=== PATIENT | female | born 1950 | race Caucasian/White ===

== ENCOUNTER 2019-06-23 15:08 | Inpatient (IN) | payer OTHER, SELFPAY ==
[2019-06-23 15:26] VITALS: BP 106/64; PULSE 69; RESP 16; TEMP 36.2; O2SAT 98
--- NOTE | 2019-06-23 15:33 | DI.RAD_ITS ---
EXAM: XR KNEE LT 4V AP,LAT,RYAN,PAT CLINICAL HISTORY: patella pain and deformity TECHNIQUE: COMPARISON: No exams were available for comparison FINDINGS: Four views were obtained. There is a comminuted moderately displaced patellar fracture. There defor mity of the lateral tibial plateau which appears to be old. No additional acute fracture seen. IMPRESSION:
--- NOTE | 2019-06-23 15:34 | ED.GENADUL_ITS ---
Discharge Plan Disposition Patient Disposition: [facility] INPATIENT Condition: Stable Discharge Details Chief Complaint: Orthopedic Clinical Impression: Closed fracture of left patella Primary Care Provider: None,None ED Provider: Ciro Cisneros Home Meds and New Rx's Prescriptions: No Action No Known Home Meds RF: 0 Medical Decision Making 69-year-old female states she was carrying some bags at home when they got tangled in her legs and she tumbled down stairs. She denies a loss of consciousness and denies head/neck/chest/back/abdomen pain. She noticed immediately left anterior knee pain, swelling, bony crepitus. Exam does reveal deformity of the left patella. Concern also for quadriceps rupture as she is unable to extend the leg. Referred for x-ray which reveals joint effusion and left patellar fracture. I discussed the case with Dr. Hernández, including difficulty ascertaining full quadriceps/patellar tendon function. We have agreed the patient benefit from overnight admission and operative repair in the morning. Dr. Hernández discussed admission to the medicine service; discussed with Dr. Monroe. Patient to be admitted. ECG Data Attestation: I personally reviewed and interpreted this ECG (s) as follows: Interpretation: Sinus rhythm, rate 58, the QRS is narrow, there is no ST segment elevation. Nonspecific T wave changes in aVL and V2. HPI General Mode of arrival: wheelchair . Date/Time Provider Initiated Documentation: 06/23/19 15:21 . Limitations to Documentation: no limitations . Information obtained by: patient and family . History of Present Illness 69 year old F presents to the emergency department with the chief complaint of Left knee pain after fall downstairs, denies loss of consciousness., described as moderate, Quality is described as dull and constant, and is localized to the left and lower extremity. Patient reports no radiation. Patient started experiencing this minute(s) and it has been constant. Rest improves symptom(s), Movement worsens symptoms . Patient notes denies chest pain, headaches and syncope. Patient did receive the following treatments prior to arrival, cold therapy Related Data Home Medications Medication Instructions Recorded Confirmed Unknown [No Known Home Meds] 06/23/19 06/23/19 Allergies Allergy/AdvReac Type Severity Reaction Status Date / Time No Known Allergies Allergy Unverified 06/23/19 15:30 General Stated Complaint: Orthopedic ALDA: 3 Review of Systems Narrative: Denies loss of consciousness. No head/back/neck/chest/abdomen pain or injury. No numbness or tingling. Reports previous left tibial plateau repair with bone graft. 6 systems reviewed and otherwise negative [facility] Social History Smoking/Tobacco Use Status: Never Alcohol Intake: current Alcohol Intake frequency: holidays/special occasions only Substance use type: does not use Do you feel safe at home: Yes Do you feel safe in your relationship?: Yes Exam Narrative Exam Narrative: GEN: awake, alert, oriented 3. Pleasant, well groomed, interactive. HEAD: Normocephalic, atraumatic ENT: Mucous membranes moist, oropharynx unremarkable, External ear exam unremarkable EYES: PERRL, EOMI NECK: Full ROM, no SUZANNE, no menigismus CHEST/RESP: Nontender, clear to auscultation bilateral, no wheeze/rhonchi/rales CARDIOVASCULAR: RRR, no murmur, rub meli. 2+ Rad pulse bilateral ABDOMEN: Soft, nontender, no mass. +Bowel sounds EXT: Left leg with patellar swelling, tenderness, palpable bony deformity. Patient is unable to hold the left leg in extension and unable to elevate the heel off the bed. She holds the leg at 30 degrees. Pain with passive movement. Sensation intact throughout Neuro: Grossly normal neurologic exam, conversant, interactive. Psych: Speech fluent, thoughts congruent, affect normal Course Vital Signs Vital signs: Vital Signs Temperature 36.2 C L 06/23/19 15:26 Pulse 69 06/23/19 15:26 Respiratory Rate 16 06/23/19 15:26 Blood Pressure 106/64 06/23/19 15:26 Pulse Oximetry 98 06/23/19 15:26 Temperature 36.2 C L 06/23/19 15:26 Temperature Source Skin 06/23/19 15:26 Pulse 69 06/23/19 15:26 Respiratory Rate 16 06/23/19 15:26 Respiratory Effort Non-Labored 06/23/19 15:28 Blood Pressure 106/64 06/23/19 15:26 Blood Pressure Position Supine 06/23/19 15:26 Pulse Oximetry 98 06/23/19 15:26 Oxygen Delivery Method Room Air 06/23/19 15:26 Oxygen Flow Rate 0 06/23/19 15:26 Pain Level 6 06/23/19 15:26
[2019-06-23] MEDS: Acetaminophen 500 MG TAB (15:35)
--- NOTE | 2019-06-23 16:12 | DI.VRAD_ITS ---
PROCEDURE INFORMATION: Exam: XR Left Knee Exam date and time: 06/23/2019 4:01 PM Clinical history: 69 years old, female; Other: Patella pain and deformity TECHNIQUE: Imaging protocol: XR Left knee. Views: 4 or more views. COMPARISON: No relevant prior studies available. FINDINGS: Bones/joints: Patella fracture. Mild diastases. Knee joint effusion with fat fluid level. Soft tissues: Normal. IMPRESSION: Patella fracture. Mild diastases. Knee joint effusion with fat fluid level. Dictated and Authenticated by: Padmini Lee MD. Ordering:BRENDON Tanner MD
[2019-06-23 16:55] VITALS: BP 106/64; PULSE 69; RESP 16; TEMP 36.2; O2SAT 98
--- NOTE | 2019-06-23 17:22 | OCONE_ITS ---
Date of service: 06/23/19 Time of Service: 17:22 History of Present Illness Narrative: Chief Complaint: Left knee pain HPI: 69-year-old female status post fall downstairs today with sudden onset left knee pain. History of left knee arthritic symptoms for the past 10 years. Stop skiing because of knee prior symptoms. Still rides horses. Prior history of left tibial plateau ORIF and subsequent hardware removal for unclear reasons. Typically very active person. SANE: 26 prior injury: As above attempted treatments: None yet numbness/tingling: Denies prior imaging: X-rays in emergency room now PMH: Negative for any heart, lung, kidney disease. diabetes: Denies allergies: NKDA FH: non-contributory SH: hand dominance: LEFT occupation: Retired. Used to be an international business person. smoke cigarettes: No Consult Reason Left displaced patella fracture Assessment and Plan Assessment and plan (1) Fracture of patella, left, closed: Status: Acute Assessment and plan: 69-year-old female with left displaced comminuted stellate patella fracture Admit to orthopedic service for surgical fixation tomorrow Pain control Multimodal as ordered Hold DVT chemoprophylaxis pending OR tomorrow. CHIN stockings and SCDs to right lower extremity. Nonweightbearing left lower extremity. Velcro long-leg knee brace in place. May loosen or remove brace while patient is in hospital bed. Elevate left lower extremity in 1-2 pillows as comfort allows for swelling. Preoperative antibiotics ordered on-call to the OR for tomorrow CBC, BMP, PT/INR preoperatively as well as EKG. No medical contraindications to surgery Decision for left patella ORIF tomorrow afternoon and discharge in the evening per patient preference as long as she is comfortable and recovered from a nesthesia appropriately The risks, benefits, and alternatives were thoroughly discussed. Patient was counseled regarding pain management, expected postoperative course, and recovery timeline. All questions were answered. Informed consent was obtained. Patient and agree and understand treatment plan. Qualifiers: Encounter type: initial encounter Fracture alignment: displaced Fracture morphology: comminuted Qualified Code(s): S82.042A - Displaced comminuted fracture of left patella, initial encounter for closed fracture Review of Systems Constitutional Constitutional: Denies chills and Denies fever(s) Eyes Eyes: Denies diplopia and Denies loss of vision ENT Ears, Nose, Mouth, and Throat: Denies dental pain and Denies other (cavities) Cardiovascular Cardiovascular: Denies chest pain with activity, Denies irregular heart rhythm and Denies dyspnea Respiratory Respiratory: Denies cough and Denies dyspnea Gastrointestinal Gastrointestinal: Denies nausea and Denies vomiting Musculoskeletal Musculoskeletal: Reports as per HPI Integumentary/Breasts Skin/Breast: Denies rash and Denies wounds Neurologic Neurologic: Reports as per HPI and Denies loss of vision Psychiatric Psychiatric: Denies anxiety and Denies depression Hematologic/Lymphatic Hematologic/Lymphatic: Denies easy bleeding and Denies easy bruising Allergic/Immunologic Allergic/Immunologic: Reports as per HPI [facility] Social History Smoking/Tobacco Use Status: Never Alcohol Intake: current Alcohol Intake frequency: holidays/special occasions only Substance use type: does not use Do you feel safe at home: Yes Do you feel safe in your relationship?: Yes Exam Const General: cooperative, comfortable and no acute distress Orientation: alert, awake and not confused Limitations: mental status not altered and no language barrier HENMT Head: normocephalic and atraumatic Neck Neck: normal visual inspection and full ROM Resp Effort & Inspection: normal respiratory effort, able to speak in complete sentences, no audible wheezes and no grunting Cardio Other: 2+ dorsalis pedis pulse. Regular rate and rhythm. No pedal edema. General: deferred Skin Trauma: lacerations and/or abrasions noted Other: Minor abrasion to the outside of the right ankle. Minor abrasion to the right hand. Minor abrasion over the anterior left patella. Neuro General: alert, awake and oriented x3 Cognition: normal cognition Speech: speech normal Extrem Other: Left knee: Significant edema. Moderate tenderness to palpation about the patella. No ecchymosis yet. All thigh and leg compartments soft. Knee comfortably resting in approximately 20 degrees of flexion. Distally neurovascular intact. 5 out of 5 strength tibialis anterior, gastrocsoleus, EHL, FHL. Sensation intact to light touch superficial peroneal, deep peroneal, tibial nerves. Psych Appearance: grossly normal Mental Status: mental status grossly normal Speech and Movement: speech and movement normal Affect: normal affect Attitude: cooperative Results Last Vital Signs Temp 97.2 F L 06/23/19 16:55 Pulse 69 06/23/19 16:55 Resp 16 06/23/19 16:55 BP 106/64 06/23/19 16:55 Pulse Ox 98 06/23/19 16:55 Labs Result diagrams: 06/23/19 17:20 06/23/19 17:20 Labs: Laboratory Results - last 24 hr 06/23/19 16:25 Total Bilirubin Cancelled Conjugated Bilirubin Cancelled AST Cancelled ALT Cancelled Alkaline Phosphatase Cancelled Creatine Kinase Cancelled Total Protein Cancelled Albumin Cancelled Imaging Imaging Studies: Left knee x-rays: Significantly displaced, comminuted proximal pole stellate patella fracture in the setting of significant patellofemoral arthrosis with joint space narrowing and marginal osteophyte formation and generalized decreased bone mineral density. Significant tricompartmental arthrosis most severe laterally and patellofemoral compartments. No obvious signs of prior hardware placement or removal.
[2019-06-23 17:30] LABS: Abs Immature Grans 0.01 k/cumm (0.0-0.09); Absolute Basophil Count 0.02 k/cumm (0.0-0.2); Absolute Eosinophil Count 0.03 k/cumm (0.0-0.7); Absolute Lymphocyte Count 0.61 k/cumm (1.2-3.4); Absolute Monocyte Count 0.39 k/cumm (0.11-0.7); Absolute Neutrophil Count 5.13 k/cumm (1.2-6.7); Basophils % 0.3; Eosinophils % 0.5; HCT 37.4 % (36.0-46.0); HGB 12.7 g/dL (12.0-15.5); Immature Grans % 0.2; Lymphocytes % 9.9; Mean Corpuscular Hemoglobin 30.4 pg (27.0-33.0); Mean Corpuscular Volume 89.5 fL (80-95); Mean Platelet Volume 9.5 fL (8.0-11.0); Monocytes % 6.3; Neutrophils % 82.8; Platelet Count 199 x1000/uL (130-400); RBC 4.18 m/cumm (4.00-5.20); RBC Distribution Width 12.2 % (11.7-14.6); White Blood Cell Count 6.19 k/cumm (4.4-10.8)
[2019-06-23 17:43] LABS: Anion Gap 7.1 mmol/L (3-11); BUN 29 mg/dL (7-18); CO2 27.9 mmol/L (21.0-32.0); CREATININE 0.85 mg/dL (0.55-1.02); Calcium 8.6 mg/dL (8.5-10.1); Chloride 105 mmol/L (98-107); Glucose 101 mg/dL (70-100); Magnesium 2.2 mg/dL (1.8-2.4); Potassium 3.6 mmol/L (3.5-5.1); Sodium 140 mmol/L (136-145)
[2019-06-23 17:44] VITALS: BP 110/70; PULSE 66; RESP 14; TEMP 36.7; O2SAT 99
[2019-06-23] MEDS: Normal Saline 1,000 ML 60 ML IV (18:08)
[2019-06-23 19:25] VITALS: BP 104/63; PULSE 73; RESP 18; TEMP 36.7; O2SAT 95
[2019-06-23] MEDS: Acetaminophen 325 MG TAB PO (21:27)
[2019-06-23 23:55] VITALS: BP 110/67; PULSE 72; RESP 17; TEMP 37.2; O2SAT 97
[2019-06-24] VITALS (7 sets, daily range): BP systolic 112–129; BP diastolic 64–73; PULSE 46–69; RESP 12–25; TEMP 36.2–37.4; O2SAT 96–100
[2019-06-24] MEDS: Melatonin 3 MG TAB 9 MG PO (00:46)
[2019-06-24] MEDS: Normal Saline 1,000 ML 60 ML IV (09:25)
[2019-06-24] MEDS: Acetaminophen 325 MG TAB PO (09:31)
--- NOTE | 2019-06-24 13:20 | DI.RAD_ITS ---
EXAM: XR KNEE LT 1V CLINICAL HISTORY: LEFT DISPLACED PATELLA FRACTURE TECHNIQUE: C-arm fluoroscopy was provided in the OR. FINDINGS: No images were obtained. The fluoro time is 21.8 seconds. The radiation dose is 0.96 mGy. IMPRESSION:
--- NOTE | 2019-06-24 13:44 | ROE_ITS ---
Date of service: 06/24/19 Time of Service: 16:39 Operative Note Operative Note DATE OF PROCEDURE: 06/24/19 PRE-OP DIAGNOSIS: Left complex, stellate displaced proximal patella fracture POST-OP DIAGNOSIS: same PROCEDURE: Left patella ORIF SURGEON: Joon Hernández FEATHER CURLING MACHINE OPERATOR: Hyacinth Skelton ANESTHESIA: regional, local and spinal ESTIMATED BLOOD LOSS: 30 COMPLICATIONS: None Patient was transported to: PACU Patient's condition: stable Implants: FiberTape and #2 FiberWire Indications: Please see complete medical record for details. 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 Spinal anesthesia was induced. All bony prominences were well-padded. Preoperative antibiotics were administered. The left lower extremity was prepped and draped in the usual sterile fashion. The correct patient, procedure, and side of the procedure were all verified prior to incision. 0.25% Marcaine 20 cc with epinephrine were infiltrated about the incision. A midline longitudinal incision extending a few centimeters proximal and distal to the patella was used. The distal extent curved laterally to incorporate a prior old tibial plateau surgery scar. Sharp dissection was carried down to the patella fracture. Cautery was used to achieve hemostasis. A large hematoma was drained from the knee. Blood clot was removed from about the fracture fragments. The fracture was found to be extremely comminuted with many fracture lines. Visual examination revealed significant degenerative changes of the cartilage on the undersurface the patella and the trochlea. Lateral fracture fragments were removed with a rondure as they were actually osteophytes that had fractured off. There was a loose 5 x 5 mm piece of cartilage proximally that was removed as well. The knee joint was copiously irrigated to remove all other fracture fragment loose bodies. Bone forceps were used to provisionally reduce the fracture planes. AP and lateral fluoroscopy confirmed adequate reduction. All the proximal bone fragments were a few millimeters in size and extremely soft so the decision was made to omit any screw fixation. Instead, a fiber tape transosseous anterior cerclage technique was used. Fracture was gapped. A 2 mm drill was used to drill longitudinal tunnels in the large distal patella fragment exiting at the junction with the patellar tendon. Next the fracture was again provisionally reduced and reduction confirmed radiographically. A fiber tape on a long straight needle was passed through the soft bone proximally and through its corresponding tunnel before being brought anteriorly across the patella and passing it through proximal bone and its corresponding bone tunnel again. Both free ends were provisionally tightened at the junction of the quadriceps tendon anteriorly medially. Next, #2 FiberWire was used to repair the medial and lateral retinaculum in interrupted fashion. #2 FiberWire was also passed through the soft bone in a transosseous fashion as well as about bone fragments proximally to secure fracture reduction. Excellent reduction was confirmed under direct visual inspection as well as an AP and lateral fluoroscopy. An additional #2 FiberWire circumferential patellar cerclage stitch was done in a pursestring fashion and tied at the superior lateral margin. The knee was brought to almost 90 degrees of flexion and there was no gapping visualized at the fracture site or under x-ray. Final AP and lateral fluoroscopy confirmed excellent maintained reduction. Internal rotation and external rotation oblique images confirmed appropriate reduction of the medial and lateral patellar facets. The wound was copiously irrigated with normal saline. Deep tissue was closed with 0 Vicryl in an interrupted fashion. Subcutaneous tissue was closed using 2-0 Monocryl in buried interrupted fashion. Skin was closed using 3-0 Monocryl in a running subcuticular fashion. Skin glue was applied over the incision followed by Mepilex bandage. The left lower extremity was wrapped in an Angel bandage and the knee was placed into a hinged knee brace locked in extension. The patient awoke from anesthesia without complications and was transferred to the recovery room in stable condition.
[2019-06-24] MEDS: Bupivacaine 0.5% Pres-Free 30 ML VIAL (13:53)
[2019-06-24] MEDS: Bupivacaine LIPOSOME/PF 133 MG/10 ML VIAL IJ (13:53)
--- NOTE | 2019-06-24 17:06 | DSE_ITS ---
Date of service: 06/24/19 DS: Diagnosis Discharge Diagnosis (1) Fracture of patella, left, closed: Status: Acute Discharge Plan Disposition Patient Disposition: HOME Condition: Stable Discharge Details Chief Complaint: Orthopedic Clinical Impression: Closed fracture of left patella Reason For Visit: L TIBIAL PLATEAU FRACTURE Admit Date/Time: 06/23/19 16:22 Admit Provider: Joon Hernández Attending Provider: Joon Hernández Primary Care Provider: None,None ED Provider: Ciro Cisneros Home Meds and New Rx's Prescriptions: New aspirin 325 mg tablet,delayed release (DR/EC) 325 mg PO BID Qty: 60 RF: 0 naproxen 250 mg tablet 250 mg PO BID PRN (Reason: pain, moderate) Qty: 60 RF: 0 oxycodone 5 mg tablet 5 mg PO Q4H PRN (Reason: pain, severe) Qty: 22 RF: 0 aspirin 325 mg tablet,delayed release (DR/EC) 325 mg PO BID Qty: 60 RF: 0 Discharge Instructions Additional Instructions: Surgery: Left patella ORIF Activity: Weightbearing as tolerated with brace locked in full extension. May remove or loosen brace while at home or in bed. Prescriptions: Aspirin 325 mg take every 12 hours to prevent a blood clot Naproxen 250 mg take 1-2 every 12 hours with a meal as needed for moderate pain Oxycodone 5 mg take 1-2 every 4-6 hours as needed for severe pain You may use [id number] Tylenol (acetaminophen) as needed for mild pain. These pain medications may be taken all at once or in different combinations as needed. Also, recommend Colace (docusate) as a stool softener as surgery and pain medicine cause constipation. Dressings: Leave dressing in place until follow-up. Keep clean and dry at all times. Follow-up: 10-[address] Hernández Please call the office during business hours with any questions or concerns. Let us know right away if you develop any redness, drainage, fevers, chest pain, or trouble breathing. Do not drink alcohol or drive for at least 24 hours after anesthesia. Referrals: Joon Hernández MD [ [facility] STAFF PHYSICIAN] - Activity:: Directions noted above Equipment/Supplies:: Crutches Diet:: As Tolerated Discharge Orders Discharge Orders: Discharge Order (Routine); Ordered 06/24/19 Ordered By: Joon Hernández DS: Summary Status at Discharge Functional status at discharge: uses cane/walker Overall status at discharge: patient is progressing back to baseline Mental Status: mental status grossly normal Speech and Movement: speech and movement normal Mood: congruent mood Affect: normal affect Exam Narrative Exam Narrative: No acute events. Comfortable. pain controlled. Left lower extremity dressing clean dry intact. Hinged knee brace in place. All compartments soft. Neurovascularly grossly intact throughout Resp Other: Breathing comfortably on room air Psych Mental Status: mental status grossly normal Speech and Movement: speech and movement normal Mood: congruent mood Affect: normal affect DS: Data Vitals/I&O Vitals and I&O: Vital Signs Temperature 99.0 F 06/24/19 07:15 Temperature Source Tympanic 06/24/19 07:15 Pulse 63 06/24/19 07:15 Pulse Rhythm Regular 06/24/19 09:30 Respiratory Rate 18 06/24/19 07:15 Respiratory Effort Non-Labored 06/24/19 09:30 Respiratory Depth Normal 06/24/19 09:30 Respiratory Pattern Normal 06/24/19 09:30 Blood Pressure 113/66 06/24/19 07:15 Blood Pressure Position Supine 06/23/19 15:26 Pulse Oximetry 98 06/24/19 07:15 Oxygen Delivery Method Room Air 06/24/19 07:15 Oxygen Flow Rate 0 06/24/19 07:15 Pain Level 4 06/24/19 09:31 Intake & Output 06/23/19 06/24/19 06/24/19 23:59 11:59 23:59 Intake Total 967 / 967 Output Total 650 / 650 Balance -650 / -650 967 / 967 Weight 118 lb 0.003 oz 117 lb 4.575 oz Intake: IV 917 / 917 Oral 50 / 50 Output: Urine 650 / 650 Other: Urine Color Yellow Yellow Urine Appearance Clear Clear Urine Odor Strong Stool Size Small Small Stool Characteristics Formed Formed Hard Voiding Methods Bedside Commode Data Completed and Pending Labs on day of discharge: Labs from last 24 hours 06/23/19 06/23/19 06/23/19 17:20 17:20 17:20 WBC 6.19 RBC 4.18 Hgb 12.7 Hct 37.4 MCV 89.5 MCH 30.4 MCHC 34.0 RDW 12.2 Plt Count 199 MPV 9.5 Immature Gran % 0.2 Neutrophils % 82.8 Lymphocytes % 9.9 Monocytes % 6.3 Eosinophils % 0.5 Basophils % 0.3 Absolute Neutrophils 5.13 Absolute Lymphocytes 0.61 L Absolute Monocytes 0.39 Absolute Eosinophils 0.03 Absolute Basophils 0.02 PT 10.0 INR 1.0 Sodium 140 Potassium 3.6 Chloride 105 Carbon Dioxide 27.9 Anion Gap 7.1 BUN 29 H Creatinine 0.85 Estimated GFR/1.73 m2 >= 60.00 Glucose 101 H Calcium 8.6 Magnesium 2.2 Total Bilirubin Conjugated Bilirubin AST ALT Alkaline Phosphatase Creatine Kinase Total Protein Albumin 06/23/19 16:25 WBC RBC Hgb Hct MCV MCH MCHC RDW Plt Count MPV Immature Gran % Neutrophils % Lymphocytes % Monocytes % Eosinophils % Basophils % Absolute Neutrophils Absolute Lymphocytes Absolute Monocytes Absolute Eosinophils Absolute Basophils PT INR Sodium Potassium Chloride Carbon Dioxide Anion Gap BUN Creatinine Estimated GFR/1.73 m2 Glucose Calcium Magnesium Total Bilirubin Cancelled Conjugated Bilirubin Cancelled AST Cancelled ALT Cancelled Alkaline Phosphatase Cancelled Creatine Kinase Cancelled Total Protein Cancelled Albumin Cancelled [facility] Social History Smoking/Tobacco Use Status: Never Alcohol Intake: current Alcohol Intake frequency: holidays/special occasions only Substance use type: does not use Do you feel safe at home: Yes Do you feel safe in your relationship?: Yes
[2019-06-24] MEDS: ceFAZolin 2 GM/50 ML BAG IVPB (17:58)
--- NOTE | 2019-06-25 08:00 | PT.INNT ---
Date of service: 06/25/19 Time of Service: 08:00 PT Notes Referral for crutch training received on 06/24/2019 at 17:08 PM and received by this PT at 8 AM today. No skilled services were provided as patient has been discharged from this hospital yesterday evening. Thank you very much for this referral. Soni Finnegan PT, DPT, CLT [facility]
== END 2019-06-24 19:15 | disposition home or self-care (01) | DRG 517 ==
LOC: ER 17:25 → MS 17:30
PROVIDERS: Internal Medicine; Admitting Provider Student in an Organized Health Care Education/Training Program; Emergency Provider Emergency Medicine; Visit Provider Student in an Organized Health Care Education/Training Program
PROC: 0QSF04Z Reposition Left Patella with Internal Fixation Device, Open Approach (ICD-10-PCS; CPT 27524; principal; 2019-06-24 13:45)
DX: S82.042A Displaced comminuted fracture of left patella, initial encounter for closed fracture (principal); W10.9XXA Fall (on) (from) unspecified stairs and steps, initial encounter; G89.18 Other acute postprocedural pain
CPT/HCPCS: 27524; 36415; 76942; 80048; 80076; 82550; 93005; 99222; 99254; 99285; NC; 73560; 73564; 83735; 85025; 85610; 93010; 99284; E0114; J0690; J1100; J1885; J2250; J2405; L1830; L1833

== ENCOUNTER 2019-07-06 14:00 | Outpatient (CLI) | payer OTHER, SELFPAY ==
--- NOTE | 2019-07-06 11:39 | DI.RAD_ITS ---
EXAM: XR KNEE LT 2V AP,LAT INDICATION: first post-op left patella ORIF. COMPARISON: XR KNEE LT 4V AP,LAT,RYAN,PAT from 06/23/2019 XR KNEE LT 1V from 06/24/2019 TECHNIQUE: 2D digital imaging was performed. FINDINGS: Again noted is the resection of the fracture fragment at the superior pole of the patella. Soft tis didi swelling remains present in the suprapatellar and prepatellar soft tissue.
== END 2019-07-06 14:20 ==
PROVIDERS: Visit Provider Student in an Organized Health Care Education/Training Program
DX: S82.042D Displaced comminuted fracture of left patella, subsequent encounter for closed fracture with routine healing (principal); M79.89 Other specified soft tissue disorders; W10.8XXD Fall (on) (from) other stairs and steps, subsequent encounter
CPT/HCPCS: 73560

== ENCOUNTER 2019-08-03 11:30 | Outpatient (CLI) | payer OTHER, SELFPAY ==
--- NOTE | 2019-08-03 11:41 | DI.RAD_ITS ---
EXAM: XR KNEE LT 2V AP,LAT INDICATION: L patella fx. COMPARISON: XR KNEE LT 4V AP,LAT,RYAN,PAT from 06/23/2019 XR KNEE LT 1V from 06/24/2019 XR KNEE LT 2V AP,LAT from 07/06/2019 TECHNIQUE: 2D digital imaging was performed. FINDINGS: Resection of the superior portion of the patella and surrounding soft tissue swelling are again note d. Patellofemoral and femoral tibial degenerative changes are also present.
== END 2019-08-03 11:50 ==
PROVIDERS: Visit Provider Physician Assistant
DX: S82.042D Displaced comminuted fracture of left patella, subsequent encounter for closed fracture with routine healing (principal); M79.89 Other specified soft tissue disorders; X58.XXXD Exposure to other specified factors, subsequent encounter
CPT/HCPCS: 73560

== ENCOUNTER 2019-08-25 14:56 | Outpatient (CLI) | payer OTHER, SELFPAY ==
--- NOTE | 2019-08-25 15:35 | DI.RAD_ITS ---
EXAM: XR KNEE LT 2V AP,LAT INDICATION: F/U. COMPARISON: XR KNEE LT 2V AP,LAT from 08/03/2019 TECHNIQUE: 2D digital imaging was performed. FINDINGS: Deformity again noted at the superior pole of the patella related to resection of fracture fragment. Degenerative changes of the femorotibial joint and patellofemoral joint are also seen.
== END 2019-08-25 15:16 ==
PROVIDERS: Visit Provider Student in an Organized Health Care Education/Training Program
DX: S82.042D Displaced comminuted fracture of left patella, subsequent encounter for closed fracture with routine healing (principal); M17.12 Unilateral primary osteoarthritis, left knee; W10.9XXD Fall (on) (from) unspecified stairs and steps, subsequent encounter
CPT/HCPCS: 73560

== ENCOUNTER 2019-09-22 14:12 | Outpatient (CLI) | payer OTHER, SELFPAY ==
--- NOTE | 2019-09-22 13:50 | DI.RAD_ITS ---
EXAM: XR KNEE LT 3V AP,LAT,RYAN INDICATION: KNEE PAIN. COMPARISON: XR KNEE LT 4V AP,LAT,RYAN,PAT from 06/23/2019 XR KNEE LT 2V AP,LAT from 08/25/2019 TECHNIQUE: 2D digital imaging was performed. FINDINGS: There is again noted partial resection of the superior patella. There is persistent swelling in the suprapatellar soft tissues. Degenerative changes are seen in the knee. No new fracture or dislocati on is present.
== END 2019-09-22 14:32 ==
PROVIDERS: Visit Provider Student in an Organized Health Care Education/Training Program
DX: M25.562 Pain in left knee (principal); M79.89 Other specified soft tissue disorders; M17.12 Unilateral primary osteoarthritis, left knee; Z98.890 Other specified postprocedural states; S82.042A Displaced comminuted fracture of left patella, initial encounter for closed fracture; W19.XXXA Unspecified fall, initial encounter; R29.898 Other symptoms and signs involving the musculoskeletal system
CPT/HCPCS: 73562; 99214

== ENCOUNTER 2019-09-29 01:17 | Outpatient (CLI) | payer OTHER, SELFPAY ==
--- NOTE | 2019-09-29 14:34 | DI.MRI_ITS ---
EXAM: MR LOWER JOINT LT WO CLINICAL HISTORY: SIGNIFICANT CREPITATION, PALPABLE LATERAL LOOSE BODY, M23.42. TECHNIQUE: Multiplanar multisequence MRI was performed. COMPARISON: XR KNEE LT 2V AP,LAT from 07/06/2019 XR KNEE LT 2V AP,LAT from 08/03/2019 XR KNEE LT 3V AP,LAT,RYAN from 09/22/2019 FINDINGS: There is a small to moderate-sized joint effusion. There is deformity at the superior aspect of the patella and mild postsurgical artifact. There is no tear of the quadriceps tendon; the quadriceps te ndon does appear thickened. The patellar tendon, anterior and posterior cruciate ligaments, medial a nd lateral collateral ligaments appear intact. Small metallic artifacts are also seen in and around the lateral tibial plateau. There is no evidence of an acute fracture. Periarticular spurring is se en. No meniscal tears are identified. Cartilage thinning throughout. IMPRESSION: Postsurgical change at the superior aspect of the patella. Thickening of the quadriceps tendon witho ut evidence of tear. Degenerative changes of the patellofemoral and femorotibial joints. DATA REPOSITORY:
== END 2019-09-29 01:37 ==
PROVIDERS: PCP Internal Medicine; Visit Provider Student in an Organized Health Care Education/Training Program
DX: M25.562 Pain in left knee (principal); M25.462 Effusion, left knee; M23.42 Loose body in knee, left knee
CPT/HCPCS: 73721

== ENCOUNTER → 2019-10-19 13:26 | Outpatient (BNVA) | payer OTHER, SELFPAY | PROVIDERS: PCP Family Medicine; Referring Provider Family Medicine; Visit Provider Student in an Organized Health Care Education/Training Program | DX: M23.42 Loose body in knee, left knee (principal) | CPT/HCPCS: 99214 ==

== ENCOUNTER 2019-10-22 06:15 | Day surgery (SDC) | payer OTHER, SELFPAY ==
[2019-10-22] VITALS (11 sets, daily range): BP systolic 92–110; BP diastolic 48–63; PULSE 65–81; RESP 14–20; TEMP 36.3–36.6; O2SAT 95–99
[2019-10-22] MEDS: Lactated Ringers 1,000 ML 100 ML IV (07:09)
[2019-10-22] MEDS: ceFAZolin 2 GM/50 ML BAG IVPB (07:30)
[2019-10-22] MEDS: Bupivacaine 0.25% Pres-Free 30 ML VIAL (09:25)
[2019-10-22] MEDS: EPINEPHrine 30 MG/30 ML VIAL (09:31)
[2019-10-22] MEDS: EPINEPHrine 1 MG/ML AMP pres-free (09:31)
--- NOTE | 2019-10-22 10:19 | W.PM.DSUDISC ---
Discharge Plan Disposition Patient Disposition: HOME Condition: Stable Discharge Details Reason For Visit: Left knee surgery Attending Provider: Joon Hernández Primary Care Provider: Margaux Judd Home Meds and New Rx's Prescriptions: New naproxen 250 mg tablet 250 - 500 mg PO BID PRN (Reason: Moderate pain or swelling) Qty: 30 RF: 0 aspirin 81 mg tablet,delayed release (DR/EC) 81 mg PO DAILY 14 Days Qty: 14 RF: 0 oxycodone 5 mg tablet 5 - 10 mg PO Q4H PRN (Reason: moderate to severe pain) Qty: 9 RF: 0 Continued soy isoflavone 50 mg Capsule 50 mg PO DAILY RF: 0 Calcium 600 + D(3) 600 mg calcium- 200 unit Capsule 1 cap PO BID RF: 0 omega-3 fatty acids-fish oil [Fish Oil] 360-1,200 mg Capsule 1 cap PO DAILY RF: 0 Centrum Silver Women 8 mg iron-400 mcg-300 mcg Tablet 1 tab PO DAILY RF: 0 Restasis 0.05 % Dropperette 1 drp OPHTHALMIC (EYE) Q12H RF: 0 Discharge Instructions Additional Instructions: Surgery: Left knee removal of foreign body, bone spur, and arthroscopic synovectomy and chondroplasty Activity: Weightbearing as tolerated. Advance to full activities over the next few weeks. A physical therapy prescription will be provided separately in the office at follow-up if needed. Prescriptions: Aspirin 81 mg take 1 daily to prevent a blood clot for 2 weeks Naproxen 250 mg take 1-2 every 12 hours with a meal as needed for moderate pain Oxycodone 5 mg take 1-2 every 4-6 hours as needed for severe pain You may use [id number] Tylenol (acetaminophen) as needed for mild pain. These pain medications may be taken all at once or in different combinations as needed. Also, recommend Colace (docusate) as a stool softener as surgery and pain medicine cause constipation. Dressings: Leave dressing in place for 2-3 days. May then remove and leave open to air or cover incisions with Band-Aids. May shower after 5 days. Follow-up: 10-[address] Hernández Please call the office during business hours with any questions or concerns. Let us know right away if you develop any redness, drainage, fevers, chest pain, or trouble breathing. Do not drink alcohol or drive for at least 24 hours after anesthesia. Referrals: Joon Hernández MD [ [facility]FF [facility]YSICIAN] - Discharge Orders Discharge Orders: Discharge Order (Routine); Ordered 10/22/19 Ordered By: Joon Hernández DS: Diagnosis Discharge Diagnosis (1) Fracture of patella, left, closed: Status: Acute (2) Loose body of left knee: Status: Acute (3) Synovitis of knee: Status: Acute (4) Arthritis of knee, left: Status: Acute
--- NOTE | 2019-10-22 10:41 | W.PM.OP ---
Date of service: 10/22/19 Time of Service: 10:19 Operative Note Operative Note DATE OF PROCEDURE: 10/22/19 PRE-OP DIAGNOSIS: 1. Left knee lateral IT band foreign body 2. Left knee contracture 3. Left knee synovitis 4. Left knee chondromalacia POST-OP DIAGNOSIS: same PROCEDURE: 1. Open removal left knee lateral foreign body and open lateral femoral condyle bone spur prominence exostectomy 2. Left knee arthroscopic chondroplasty patella, trochlea, and intercondylar notch 3. Left extensive synovectomy with lysis of adhesions suprapatellar pouch, pathologic synovectomy medial, and lateral gutters as well as intercondylar area 4. Left knee manipulation under anesthesia SURGEON: Joon Hernández BUSINESS BANKING OFFICER: None None ANESTHESIA: GETA and local ESTIMATED BLOOD LOSS: 15 PATHOLOGY: none sent TOURNIQUET TIME: 104 COMPLICATIONS: None Patient was transported to: PACU Patient's condition: stable Implants: None Indications: Please see complete medical record for details. Findings: Open: Lateral capsular and iliotibial band thickening over possible chronic retained foreign body from prior orthopedic implant overlying prominent lateral femoral condyle bone spur ridge causing reproducible mechanical IT band symptoms and palpable snapping, which was resolved after removal of bone spur and overlying capsular and IT band thickening. Arthroscopy: Healed patella fracture. Patella centrally located in the trochlear groove. Majority grade 3-4 cartilage degeneration patellofemoral compartment. Significant adhesions in the suprapatellar pouch and to a lesser extent the medial lateral gutters. Significant intercondylar osteophytes. Intact ACL. Largely intact medial lateral menisci. Majority grade 2 with some small area grade 3 cartilage degeneration medial lateral compartments. Procedure Description: The patient was taken to the operating room and transferred to the operating room table. Anesthesia was induced. All bony prominences were well-padded. Preoperative antibiotics were administered. The left knee was prepped and draped in the usual sterile fashion. The correct patient, procedure, and side of the procedure were all verified prior to incision. The left knee was taken through flexion extension and the previously marked lateral prominence under the IT band lateral to the lateral femoral condyle was palpated to confirm this was the area of mechanical symptoms. Left lower extremity was elevated gravity used to exsanguinate the extremity and the tourniquet was inflated. A direct lateral approach was used to localize the presumed foreign or loose body. The IT band was exposed and palpated and the prominence was felt to be more deeply located. The IT band was split in line with its fibers sharply and elevated off the underlying joint capsule. There is a thickening of the IT band and capsule as well as a more deeply located large prominence. Sharp dissection was used to remove the soft tissue thickening with small calcification inside but there was no obvious retained metallic or foreign body. The knee was taken through range of motion again and it was felt that the mechanical symptoms have been reduced but when the IT Band Were Reapproximated over the Lateral Femoral Condyle There Was Still Prominent Snapping. The capsule was incised longitudinally exposing a significant lateral femoral condyle osteophyte ridge. A rondure and rasp were used to remove and smooth this extra bone spur taking great care to completely remove any source of impinging or prominence. Digital palpation confirmed removal of the prominent ridge and appropriate relief of mechanical symptoms as the lateral capsule and IT band moved over the lateral femoral condyle through flexion extension. When the capsule was reapproximated it was felt to cause undue tightness laterally to the patella and over the remove the exostosis. Decision was made to leave the small capsular rent released. The IT band was closed using 0 Vicryl in a [id number] interrupted fashion. The knee was then taken through an examination under anesthesia for range of motion. There was almost full extension but flexion was limited to approximately 130 degrees. Gentle repeated extension and flexion manipulation technique with an anterior drawer carefully placed in the tibia was used to re-create terminal extension approximately 2 degrees and flexion to 150 degrees within 2 fingerbreadths from her buttocks. Range of motion was repeated through many cycles. There is still crepitation significantly about the patella in the suprapatellar space so the decision was made to proceed with arthroscopic debridement. Anterior medial and anterior lateral arthroscopic incisions were then used to introduce arthroscope and mechanical shaver into the knee. A complete diagnostic arthroscopy was performed and needs noted above. Starting in the suprapatellar pouch, the significant adhesions were removed re-creating the suprapatellar pouch until muscle fibers were just visible and then completing the pathologic synovectomy in the intercondylar notch and medial lateral gutters . There is significant osteophyte bone spurring in the intercondylar notch and a shaver was used to mechanically reduce these abnormalities re-creating the intercondylar space. Now that there was adequate exposure, the shaver was then used to complete a undersurface patellar, trochlear, and intercondylar chondroplasty in order to smooth and remove irregularities to the cartilage surfaces as best possible given pre-existing chondromalacia degenerative changes. The knee was drained of arthroscopic fluid. The knee was taken through range of motion confirming full terminal extension and flexion to approximately 150 degrees. There is no palpable bone spur loose body foreign body or IT band snapping over the lateral knee. Laterally, subcutaneous tissue was closed using 2-0 Monocryl in a buried anterior fashion. Skin was closed using 3-0 Monocryl in a buried running subcuticular fashion. The portals were closed using 3-0 Monocryl in a buried interrupted fashion. An 18-gauge needle was used to localize the superior lateral approach to the knee and 25 cc of 0.25% bupivacaine containing epinephrine and 4 mg of morphine was injected for postoperative analgesia. Mastisol was applied about the incisions which were covered with Steri-Strips, Xeroform, dry 4 x 4 gauze ABD and sterile soft roll. The knee was covered with a gentle compressive Angel wrap. The patient awoke from anesthesia without complication was taken recovery room in stable condition
[2019-10-22] MEDS: oxyCODONE 5 MG TAB PO (12:49)
== END 2019-10-22 14:13 | disposition home or self-care (01) ==
PROVIDERS: PCP Family Medicine; Visit Provider Student in an Organized Health Care Education/Training Program
PROC: (CPT 29870; principal; 2019-10-22 07:30)
PROC: (CPT 29884; 2019-10-22 07:30)
DX: M23.42 Loose body in knee, left knee (principal); T84.84XA Pain due to internal orthopedic prosthetic devices, implants and grafts, initial encounter; M23.8X2 Other internal derangements of left knee; M25.562 Pain in left knee; M24.562 Contracture, left knee; M65.9 Synovitis and tenosynovitis, unspecified; M94.262 Chondromalacia, left knee
CPT/HCPCS: 29884; 27372; 29875; J0171; J0690; J1100; J1885; J2001; J2250; J2405; J3010

== ENCOUNTER → 2019-11-02 11:28 | Outpatient (BNVA) | payer OTHER, SELFPAY | PROVIDERS: PCP Family Medicine; Referring Provider Family Medicine; Visit Provider Student in an Organized Health Care Education/Training Program | DX: S82.042D Displaced comminuted fracture of left patella, subsequent encounter for closed fracture with routine healing (principal); X58.XXXD Exposure to other specified factors, subsequent encounter; M17.12 Unilateral primary osteoarthritis, left knee; M65.9 Synovitis and tenosynovitis, unspecified; M76.32 Iliotibial band syndrome, left leg ==

== ENCOUNTER → 2019-12-14 11:19 | Outpatient (BNVA) | payer OTHER, SELFPAY | PROVIDERS: PCP Family Medicine; Visit Provider Student in an Organized Health Care Education/Training Program | DX: S82.042D Displaced comminuted fracture of left patella, subsequent encounter for closed fracture with routine healing (principal); X58.XXXD Exposure to other specified factors, subsequent encounter; M17.12 Unilateral primary osteoarthritis, left knee; M65.9 Synovitis and tenosynovitis, unspecified; M76.32 Iliotibial band syndrome, left leg ==

== ENCOUNTER 2021-01-17 09:47 | Outpatient (CLI) | payer OTHER, SELFPAY ==
--- NOTE | 2021-01-17 14:15 | DI.RAD_ITS ---
Exam(s) XR FOOT LT COMPLETE XR ANKLE LT COMPLETE EXAM: XR ANKLE LT COMPLETE and XR foot LT complete CLINICAL HISTORY: PAIN LT ANKLE M25.572 TECHNIQUE: 2D digital imaging was performed. COMPARISON: CR XR FOOT LT COMPLETE from 01/17/2021 FINDINGS: BONES: No acute fracture is present. No bony destructive lesion is seen. JOINTS:The ankle mortise is normally aligned. SOFT TISSUE: Normal. IMPRESSION: No acute fracture or dislocation of the left ankle or left foot. DATA REPOSITORY: RADIATION DOSE DELIVERED:
== END 2021-01-17 10:07 ==
PROVIDERS: PCP Family Medicine; Visit Provider Physician Assistant Medical
DX: M25.572 Pain in left ankle and joints of left foot (principal)
CPT/HCPCS: 73610; 73630

== ENCOUNTER 2021-06-04 02:02 | Outpatient (CLI) | payer MEDICARE, SELFPAY ==
--- NOTE | 2021-06-04 11:45 | DI.MAMMO_ITS ---
Exam(s) MAMMO SCREENING EXAM: MAMMO SCREENING CLINICAL HISTORY: SCREENING, Z12.31 TECHNIQUE: Mammograms were interpreted according to the usual protocol including computer analysis w [facility] CAD system, tomosynthesis and C-view imaging. COMPARISON: FINDINGS: The breasts are heterogeneously dense. There is no dominant mass or clumped microcalcification ident ified in either breast. No prior exams are available for comparison. IMPRESSION: No specific evidence of malignancy at this time. Routine screening examinations are suggested at yea rly intervals in this age group according to the ACS ACR guidelines. BI-RADS Category 1 - Negative Breast Density - Category C - Heterogeneously dense
== END 2021-06-04 02:22 ==
PROVIDERS: PCP Family Medicine; Visit Provider Family Medicine
DX: Z12.31 Encounter for screening mammogram for malignant neoplasm of breast (principal); R92.8 Other abnormal and inconclusive findings on diagnostic imaging of breast
CPT/HCPCS: 77063; 77067